=== PATIENT | male | born 1960 | race Caucasian/White ===

== ENCOUNTER 2022-07-15 20:17 | Emergency (ER) | payer OTHER ==
[2022-07-15 20:27] VITALS: BMI 25.7
[2022-07-15] MEDS ORDERED: ACETAMINOPHEN 325 MG TABLET (FP) PO ONE (20:59)
[2022-07-15] MEDS ORDERED: ACETAMINOPHEN 325 MG TABLET (FP) ONE (21:11)
[2022-07-15 21:41] LABS: URINE APPEARANCE CLEAR; URINE BILIRUBIN NEGATIVE (NEGATIVE); URINE COLOR YELLOW; URINE GLUCOSE (UA) NEGATIVE (NEGATIVE); URINE KETONE TRACE (NEGATIVE); URINE LEUK ESTERASE NEGATIVE (NEGATIVE); URINE NITRITE NEGATIVE (NEGATIVE); URINE PROTEIN NEGATIVE (NEGATIVE); URINE UROBILINOGEN 0.2 mg/dL (0.2-1.0)
[2022-07-15 21:43] LABS: BASO % 0.3 % (0-2.0); EOS % 0.2 % (0-4.5); HEMATOCRIT 43.6 % (35.4-49); HEMOGLOBIN 15.1 GM/dL (11.7-16.9); LYMPH % 7.3 % (8-40); MCH 31.8 pg (25.7-33.7); MCHC 34.6 g/dl (32.0-35.9); MEAN CELL VOLUME 91.8 fl (80-96); MEAN PLT VOLUME 8.8 fl (7.5-11.1); NEUT % 88.2 % (42.8-82.8); PLATELET COUNT 327 10^3/uL (134-434); RBC 4.75 M/mm3 (4.00-5.60); RDW 12.4 % (11.9-15.9); WHITE BLOOD COUNT 14.3 K/mm3 (4.0-10.0)
[2022-07-15 22:03] LABS: CALCIUM 9.6 mg/dL (8.5-10.1)
[2022-07-15 22:04] LABS: ALBUMIN 4.4 g/dl (3.4-5.0); BLOOD UREA NITROGEN 12.7 mg/dL (7-18)
[2022-07-15 22:08] LABS: BILIRUBIN,TOTAL 0.5 mg/dL (0.2-1)
[2022-07-15] MEDS ORDERED: KETOROLAC TROMETHAMINE 15 MG/ML VIAL IVPUSH ONE (22:20)
[2022-07-15] MEDS ORDERED: KETOROLAC TROMETHAMINE 15 MG/ML VIAL ONE (22:24)
[2022-07-16] MEDS ORDERED: AZITHROMYCIN 250 MG TABLET PO ONE (00:50)
[2022-07-16] MEDS ORDERED: AZITHROMYCIN 250 MG TABLET ONE (00:55)
[2022-07-16] MEDS ORDERED: AMOX TR/POT CLAV 875MG/125MG TABLETS (FP) PO ONE (00:58)
[2022-07-16] MEDS ORDERED: AMOX TR/POT CLAV 875MG/125MG TABLETS (FP) ONE (01:05)
[2022-07-16 01:34] VITALS: BP 124/78; PULSE 82; RESP 20; TEMP 98.6
== END 2022-07-16 01:34 | disposition home or self-care (01) ==
LOC: JER 20:17
PROC: 3E033GC Introduction of Other Therapeutic Substance into Peripheral Vein, Percutaneous Approach (ICD-10-PCS; principal; 2022-07-15)
DX: J18.9 Pneumonia, unspecified organism (principal)
CPT/HCPCS: 0241U-QW; 36415; 71046-TC-FY; 74176-TC; 80053; 81003; 85025; 87086; 96374; 99285-25